=== PATIENT | male | born 1970 | race Caucasian/White ===

== ENCOUNTER 2017-02-20 22:39 | Emergency (ER) | payer BC ==
[~2017-02-20] VITALS: Ht 177.8 cm; Wt 115.4 kg
[~2017-02-20 22:39] MED LIST: AMLO2.5T PO; SYN125 PO
[2017-02-20 22:42] VITALS: BP 156/94; TEMP 36.5; Ht 177.8 cm; Wt 115.4 kg
[2017-02-20] MEDS ORDERED: LEVO25TA PO (22:50)
[2017-02-20] MEDS ORDERED: ATEN-173 PO (22:50)
[2017-02-20] MEDS ORDERED: PSEUDOEPHEDRINE HCL 30 MG TAB PO STA (22:52)
[2017-02-20] MEDS ORDERED: AMOXICILLIN 250 MG CAP PO STA (22:52)
[2017-02-20] MEDS ORDERED: AMOX500C3 PO (23:08)
[2017-02-20 23:14] VITALS: PULSE 86; O2SAT 97
--- NOTE | 2017-02-21 00:37 | EMERGENCY ROOM VISIT NOTE ---
History First contact with patient: 22:42 Chief Complaint: EAR PAIN Stated Complaint: LEFT EAR PAIN History of Present Illness The patient is a 46 year old male who presents to the Emergency Room with complaints of cough, congestion, runny nose and left ear fullness and discomfort for the past few days. Patient states the ear pain started tonight. Patient denies fever, chills, sore throat, neck stiffness, chest pain, dyspnea , abdominal pain. He is tolerating by mouth fluids and food. Review of Systems See HPI for pertinent positives & negatives. A total of 10 systems reviewed and were otherwise negative. Past Medical/Surgical History Hypothyroidism, hypertension Social History Smoking Status: Never Smoker Smokeless Tobacco Use: No Drug Use: none Occupation Status: employed Current/Historical Medications Scheduled Amoxicillin (Amoxil), 500 MG PO TID Atenolol (Tenormin), Unknown Dose PO DAILY Levothyroxine Sodium (Synthroid), Unknown Dose PO DAILY Allergies Coded Allergies: No Known Allergies (Unverified , 02/20/17) Physical Exam Vital Signs Date Time Temp Pulse Resp B/P Pulse Ox O2 Delivery O2 Flow Rate FiO2 02/20/17 23:14 86 18 97 02/20/17 22:42 36.5 62 16 156/94 96 Room Air Pain Rating (0-10): 3.0 Physical Exam VITALS: Vitals are noted on the nurse's note and reviewed by myself. Vital signs stable. GENERAL: Pleasant male, in no acute distress, nondiaphoretic, well-developed well-nourished. SKIN: The skin was without rashes, erythema, edema, or bruising. There is no tenting of the skin. Capillary reflex less than 2 seconds. HEAD: Normocephalic atraumatic. EARS: Left tympanic membrane erythematous with fluid present and ear canal is erythematous right External auditory canals clear, tympanic membranes pearly liu without erythema or effusion no mastoid tenderness bilaterally. EYES: Pupils equal round and reactive to light and accommodation. Conjunctivae without injection, sclerae without icterus. Extraocular movements intact. NOSE: Patent, turbinates without inflammation or discharge. No sinus tenderness. MOUTH: Mucous membranes moist. Pharynx without erythema or exudate. Uvula midline. Airway patent. Tongue does not deviate. NECK: Supple without nuchal rigidity. No lymphadenopathy. No thyromegaly. Cervical spine is nontender. No JVD. No meningeal signs HEART: Regular rate and rhythm without murmurs gallops or rubs. LUNGS: Clear to auscultation bilaterally without wheezes, rales or rhonchi. No dullness to percussion. No retractions or accessory muscle use. ABDOMEN: Positive bowel sounds x 4. Normal tympanic percussion. Soft, nontender, without masses or organomegaly. Phillips sign negative. No guarding or rebound tenderness. MUSCULOSKELETAL: No muscle atrophy, erythema, or edema noted. NEURO: Patient was alert and oriented to person place and time. Normal sensation to light and sharp touch. No focal neurological deficits. Medical Decision & Procedures Medications Administered Medications (Trade) Dose Ordered Sig/Kiki Route Start Time Stop Time Status Last Admin Dose Admin Amoxicillin (Amoxil Cap) 500 mg NOW STAT PO 02/20/17 22:52 02/20/17 22:54 DC 02/20/17 22:52 500 MG Pseudoephedrine HCl (Sudafed Tab) 60 mg NOW STAT PO 02/20/17 22:52 02/20/17 22:54 DC 02/20/17 22:52 60 MG ED Course Prior records/ancillary studies reviewed. Triage Nursing notes reviewed. The patient's history was concerning for a cold symptoms with ear pain. Differential diagnosis: Etiologies such as viral syndrome, tonsillitis, otitis, pneumonia, influenza, as well as others were entertained. ER treatment provided: Amoxicillin, Sudafed On reassessment the patient felt better. Diagnostics interpreted by me: Deferred This appears to be consistent with otitis with effusion. Patient was advised to take a decongestant. He was started on an medics possible early otitis media. He was strongly encouraged to be congestive next few days and to follow- up family care in a few days or here in the ER sooner for headache, neck stiffness, fevers, worsening signs or symptoms or as needed. Patient had no signs of meningitis or mastoiditis on exam. He was well-appearing.. By the evaluation outlined above emergent etiologies such as peritonsillar abscess, retropharyngeal abscess pneumonia, meningitis, urinary tract infection, sepsis, bacteremia, as well as others were deemed relatively unlikely. The pt informed about the findings as listed above. All questions were answered and pleased with the treatment. Return instructions were outlined and the patient was discharged in stable condition. Outpatient prescription management: Amoxicillin Referral: The patient was referred back to their primary care physician for follow-up in 2 to 3 days for a recheck of the current condition. Medical Decision As above Impression Primary Impression: Left otitis media with effusion Departure Information Dispostion Home / Self-Care Condition GOOD Prescriptions Amoxicillin (AMOXIL) 500 Mg Cap 500 MG PO TID, #30 CAP Prov: Belkis Kendall .ALICIA 02/20/17 Forms WORK / SCHOOL INSTRUCTIONS, HOME CARE DOCUMENTATION FORM, IMPORTANT VISIT INFORMATION Patient Instructions [facility], ED Otitis Media Serous Adult Additional Instructions Amoxicillin 500mg: Take one pill 3 times daily for 10 days for your infection. All antibiotics can cause diarrhea. If this occurs and you feel worse or it does not resolve in 1-2 days follow up with your doctor or return to the Emergency Department as this could be signs of serious underlying problems. Any medication can cause an allergic reaction, stop the pills immediately and return to the ER for rash, hives, breathing difficulties, or swelling. Acetaminophen(Tylenol) may be used for fever or pain. Use 1000mg every six hours as needed. Avoid using more than 3000mg in a 24 hour period. (AND/OR) Ibuprofen(Motrin, Advil) may be used for fever or pain. Use 600mg every six hours as needed. Take with food. Avoid using more than 2400mg in a 24 hour period. Do not use 2400mg per day for more than three consecutive days without physician direction. Prolonged inappropriate use can lead to stomach upset or ulcers. Afrin nasal spray: 2-3 sprays to each nostril twice daily as needed for congestion. Do not use for more than 3-4 days because it can lead to worsening rebound congestion. Pseudoephedrine(Sudaphed): 30-60mg every 6 hours as needed for nasal congestion. Do not take this with other stimulant products or supplements. Rest and drink plenty of fluids. Controlling your fever with Tylenol and Ibuprofen as above will make you feel better. Wash your hands after nose blowing, sneezing, or coughing. Most germs are spread through contact, therefore improper hygiene may result in your close contacts and loved ones becoming ill just like you. Continue current medications. Return to the ER for severe headache, neck stiffness, chest pain, difficulty breathing, fevers, vomiting, worsening of your condition, or as needed. Follow up with your primary physician this week for a recheck of your current condition.
== END 2017-02-20 23:15 | disposition home or self-care (01) ==
LOC: C.EDB 22:40 → C.EDC 23:15
DX: H66.92 Otitis media, unspecified, left ear (principal); I10 Essential (primary) hypertension; E03.9 Hypothyroidism, unspecified; Z79.899 Other long term (current) drug therapy

== ENCOUNTER 2017-06-11 15:39 | Observation (INO) | payer BC ==
[~2017-06-11] VITALS: Ht 177.8 cm; Wt 112.4 kg
[~2017-06-11 15:39] MED LIST changes: -AMLO2.5T PO; +ATEN-173 PO; +LEVO25TA PO; -SYN125 PO
[2017-06-11] MEDS ORDERED: NITROGLYCERIN OINT 2% 1GM PACKET EXT STA (16:04)
[2017-06-11] MEDS ORDERED: ASPIRIN 81 MG CHEW PO STA (16:04)
--- NOTE | 2017-06-11 16:16 | EMERGENCY ROOM VISIT NOTE ---
History Report prepared by Pati: Elvis Scanlon Under the Supervision of: Dr. Zacarias Hoover M.D. First contact with patient: 15:59 Chief Complaint: CHEST PAIN Stated Complaint: SOB, CHEST PAIN Nursing Triage Summary: pt to the ED with intermittant Chest pain SOB and nausea and diaphoresis on sunday nothing makes it better or worse History of Present Illness The patient is a 46 year old male who presents to the Emergency Room with complaints of intermittent chest pain starting about two weeks ago which worsened two days ago. He states that the worse the pain gets is a 2/10 in severity. He states that two days ago he was getting diaphoretic, he was light headed when he stood up. The patient additionally states that he has been nauseous, and he has had intermittent shortness of breath which is worsened with exertion. He states that nothing makes the chest pain any better or worse, and it only lasts 10-15 minutes at a time. The patient additionally states that he is feeling some chest tightness. He denies any new leg swelling, though he has been having issues with his feet with plantar fascitis. The patient states that he has a history of hypertension, and he takes blood pressure medications. Denies any history of heart or lung problems, though he states that his dad had a heart attack in his 50s. He additionally states that he has troubles with his thyroid, and he states that he has never had a stress test done. Source of History: patient Onset: two weeks ago Position: chest Symptom Intensity: 2/10 Timing: intermittent Associated Symptoms: + diaphoresis, + SOB, + nausea Review of Systems See HPI for pertinent positives & negatives. A total of 10 systems reviewed and were otherwise negative. Past Medical & Surgical Medical Problems: (1) Hypertension (2) Plantar fasciitis Family History FH: heart attack Social History Smoking Status: Never Smoker Drug Use: none Marital Status: Occupation Status: employed Current/Historical Medications Scheduled Atenolol (Tenormin), 50 MG PO DAILY Levothyroxine Sodium (Synthroid), 200 MCG PO DAILY Allergies Coded Allergies: No Known Allergies (Unverified , 06/11/17) Physical Exam Vital Signs Date Time Temp Pulse Resp B/P (MAP) Pulse Ox O2 Delivery O2 Flow Rate FiO2 06/11/17 17:01 73 18 160/104 93 Room Air 06/11/17 16:17 68 06/11/17 15:47 36.9 63 20 178/107 96 Physical Exam GENERAL: Patient is in no acute distress. HEENT: No acute trauma, normocephalic atraumatic, mucous membranes moist, no nasal congestion, no scleral icterus. NECK: No stridor, no adenopathy, no meningismus, trachea is midline. LUNGS: Clear to auscultation bilaterally, no wheeze, no rhonchi, breath sounds equal. HEART: Without murmurs gallops or rubs, regular rate and rhythm. ABDOMEN: Soft, nontender, bowel sounds positive, no hernias, no peritonitis. EXTREMITIES: No cyanosis or edema, full range of motion of all the joints without pain or difficulty, no signs for acute trauma. NEUROLOGIC: Oriented x 3, no acute motor or sensory deficits, no focal weakness. SKIN: No rash, no jaundice, no diaphoresis. Medical Decision & Procedures ER Provider Diagnostic Interpretation: Radiology results as stated below per my review and radiologist interpretation: CHEST ONE VIEW PORTABLE HISTORY: 46 years-old Male CHEST PAIN acute atypical chest pain. Initial exam. COMPARISON: None available TECHNIQUE: Portable upright AP view of the chest FINDINGS: Cardiac silhouette is upper limits of normal. No pneumothorax, pleural effusion or lobar airspace consolidation. Subsegmental left basilar opacity suggests atelectasis. Bones are grossly intact. IMPRESSION: Subsegmental opacity of the left lung base suggest atelectasis. Lungs are otherwise clear. The above report was generated using voice recognition software. It may contain grammatical, syntax or spelling errors. Electronically signed by: nAtonio Soto M.D. 06/11/2017 5:06 PM Dictated Date/Time: 06/11/2017 5:05 PM Laboratory Results 06/11/17 16:30 06/11/17 16:30 Test 06/11/17 16:30 Red Blood Count 4.87 M/uL (4.7-6.1) Mean Corpuscular Volume 88.9 fL (80-100) Mean Corpuscular Hemoglobin 30.6 pg (25-34) Mean Corpuscular Hemoglobin Concent 34.4 g/dl (32-36) RDW Standard Deviation 41.3 fL (36.4-46.3) RDW Coefficient of Variation 12.8 % (11.5-14.5) Mean Platelet Volume 9.7 fL (7.4-10.4) Prothrombin Time 10.5 SECONDS (9.0-12.0) Prothromb Time International Ratio 1.0 (0.9-1.1) Activated Partial Thromboplast Time 27.9 SECONDS (21.0-31.0) Partial Thromboplastin Ratio 1.1 Anion Gap 7.0 mmol/L (3-11) Est Creatinine Clear Calc Drug Dose 132.5 ml/min Estimated GFR () 118.8 Estimated GFR (Non- 102.5 BUN/Creatinine Ratio 8.9 (10-20) Calcium Level 8.9 mg/dl (8.5-10.1) Total Bilirubin 0.4 mg/dl (0.2-1) Aspartate Amino Transf (AST/SGOT) 27 U/L (15-37) Alanine Aminotransferase (ALT/SGPT) 40 U/L (12-78) Alkaline Phosphatase 72 U/L (45-117) Total Creatine Kinase 118 U/L (39-308) Creatine Kinase MB 0.7 ng/ml (0.5-3.6) Creatine Kinase MB Ratio 0.6 (0-3.0) Troponin I < 0.015 ng/ml (0-0.045) Total Protein 8.3 gm/dl (6.4-8.2) Albumin 4.1 gm/dl (3.4-5.0) Globulin 4.2 gm/dl (2.5-4.0) Albumin/Globulin Ratio 1.0 (0.9-2) Laboratory results reviewed by me. Medications Administered Medications (Trade) Dose Ordered Sig/Kiki Route Start Time Stop Time Status Last Admin Dose Admin Nitroglycerin (Nitroglycerin 2% Oint) 1 inch NOW STAT EXT 06/11/17 16:04 06/11/17 16:09 DC 06/11/17 17:00 1 INCH Aspirin (Aspirin Chew) 324 mg NOW STAT PO 06/11/17 16:04 06/11/17 16:09 DC 06/11/17 17:00 324 MG ECG Indication: chest pain Rate (beats per minute): 63 Rhythm: normal sinus Findings: T-wave inversion (Inferior and lateral), no ectopy ED Course 1559: The patient was evaluated in room B10. A complete history and physical exam was performed. 1604: Aspirin 324mg PO, Nitroglycerin 1 inch EXT 1715: I reevaluated the patient, and I updated him on the treatment plan. 172: Discussed the patient's case with Tariq Plummer. The patient will be evaluated for further management. Medical Decision Differential Diagnoses include: Angina or PA, musculoskeletal pain, uncontrolled hypertension, anemia, aortic dissection, and PE There is no leukocytosis or concerning anemia. No significant electrolyte abnormality, kidney failure or hepatitis. There is no coagulopathy. EKG shows a sinus rhythm with some T-wave changes in the inferior and lateral leads. These changes seem worse compared to a previous EKG. Cardiac enzyme testing times one is not consistent with acute cardiac injury. Chest x-ray shows some mild cardiomegaly, no mediastinal widening, pneumonia or pneumothorax. The patient was given oral aspirin and Nitropaste. He remains somewhat hypertensive, he is resting comfortably. Given his cardiac risk factors, his EKG findings, his description of symptoms, further cardiac workup is warranted. I spoke to the patient and case management. The on-call hospitalist was consulted. Medication Reconcilliation Current Medication List: was personally reviewed by me Blood Pressure Screening Patient's blood pressure: Elevated blood pressure Evaluated by the hospitalist Consults Time Called: 171 Consulting Physician: Tariq Plummer Returned Call: [phone] Discussed the patient's case with Tariq Plummer. The patient will be evaluated for further management. Impression Primary Impression: Precordial chest pain Additional Impression: HTN (hypertension) Scribe Attestation The scribe's documentation has been prepared under my direction and personally reviewed by me in its entirety. I confirm that the note above accurately reflects all work, treatment, procedures, and medical decision making performed by me. Departure Information Dispostion Being Evaluated By Hospitalist Referrals Rosendo Perez M.D. (PCP) Patient Instructions My [facility] [address] [facility] Problem Qualifiers
[2017-06-11] MEDS ORDERED: ATEN50TA8 PO (16:34)
[2017-06-11] MEDS ORDERED: LEVO200T PO (16:34)
[2017-06-11 16:54] LABS: HEMATOCRIT 43.3 % (42-52); MEAN CELL VOLUME 88.9 fL (80-100); MEAN CORPUSCULAR HEMOGLOBIN 30.6 pg (25-34); MEAN CORPUSCULAR HGB CONC 34.4 g/dl (32-36); MEAN PLATELET VOLUME 9.7 fL (7.4-10.4); PLATELET COUNT 316 K/uL (130-400); RED BLOOD COUNT 4.87 M/uL (4.7-6.1); WHITE BLOOD COUNT 7.44 K/uL (4.8-10.8)
[2017-06-11 16:56] LABS: PARTIAL THROMBOPLASTIN RATIO 1.1; PROTHROMBIN TIME (PATIENT) 10.5 SECONDS (9.0-12.0)
[2017-06-11 17:03] LABS: ALT/SGPT 40 U/L (12-78); BLOOD UREA NITROGEN 8 mg/dl (7-18); BUN/CREATININE RATIO 8.9 (10-20); CALCIUM 8.9 mg/dl (8.5-10.1); CARBON DIOXIDE 25 mmol/L (21-32); CHLORIDE 106 mmol/L (98-107); CREATININE 0.89 mg/dl (0.60-1.40); GLUCOSE 90 mg/dl (70-99); POTASSIUM 3.9 mmol/L (3.5-5.1); SODIUM 138 mmol/L (136-145)
--- NOTE | 2017-06-11 17:07 | DIAGNOSTIC IMAGING REPORT ---
CHEST ONE VIEW PORTABLE HISTORY: 46 years-old Male CHEST PAIN acute atypical chest pain. Initial exam. COMPARISON: None available TECHNIQUE: Portable upright AP view of the chest FINDINGS: Cardiac silhouette is upper limits of normal. No pneumothorax, pleural effusion or lobar airspace consolidation. Subsegmental left basilar opacity suggests atelectasis. Bones are grossly intact. IMPRESSION: Subsegmental opacity of the left lung base suggest atelectasis. Lungs are otherwise clear. The above report was generated using voice recognition software. It may contain grammatical, syntax or spelling errors. Electronically signed by: Antonio Soto M.D. 06/11/2017 5:06 PM Dictated Date/Time: 06/11/2017 5:05 PM
[2017-06-11 17:08] LABS: ALKALINE PHOSPHATASE 72 U/L (45-117); AST/SGOT 27 U/L (15-37); CKMB/CK RATIO 0.6 (0-3.0)
[2017-06-11] MEDS ORDERED: ALUMINUM/MAGNESIUM/SIMETH (MAALOX MAX) 30 ML UDC PO PRN (18:30)
[2017-06-11] MEDS ORDERED: POLYETHYLENE (MIRALAX) 17 GM PACK PO PRN (18:30)
[2017-06-11] MEDS ORDERED: ACETAMINOPHEN 325 MG TAB PO PRN (18:30)
[2017-06-11] MEDS ORDERED: MAGNESIUM HYDROXIDE SUSP 30 ML UDC PO PRN (18:30)
[2017-06-11] MEDS ORDERED: ZOLPIDEM TARTRATE 5 MG TAB PO PRN (18:30)
[2017-06-11] MEDS ORDERED: NITROGLYCERIN 0.4 MG SL PER TAB CHARGE SL PRN (18:30)
--- NOTE | 2017-06-11 18:36 | History and Physical ---
History & Physical Date & Time of Service: Jun 11, 2017 at 18:26 Chief Complaint: Sob, Chest Pain Primary Care Physician: Rosendo Perez M.D. History of Present Illness Source: patient, family 46 years old white male with past medical history of hypertension and hypothyroidism presented to the ED with intermittent chest pain. Patient stated that for the past few days he has been having intermittent chest tightness substernal and left side of the chest, the vein itself was about 2 out 10 comes with minimal exertion. Associated with shortness of breath and diaphoresis. Also said when he moves from sitting to standing position he gets lightheaded. Patient comes in minimal exertion and there is no relieving factors. 2 days ago he had his worst episode where he felt a lot of diaphoresis palpitation and dizziness. Today he had a recurrent episode but was not as bad as the one that happened 2 days ago. He traveled recently to [place] by car about 2 weeks ago. Denies any leg swelling or tenderness no shortness of breath except the one described above associated with chest pain He does not smoke does not drink lives with his was smokes outside the house. Strong family history of cardiac disease and diabetes in his dad Family History FH: heart attack Social History Smoking Status: Never Smoker Drug Use: none Marital Status: Occupational Status: employed Multi-Drug Resistant Organisms History of MDRO: No Allergies Coded Allergies: No Known Allergies (Unverified , 06/11/17) Home Medications Scheduled Atenolol (Tenormin), 50 MG PO DAILY Levothyroxine Sodium (Synthroid), 200 MCG PO DAILY Review of Systems Constitutional: No fever, No chills, No sweats, No weight loss, No weakness, No fatigue, No problem reported Eyes: No worsening of vision, No eye pain, No redness, No discharge, No diplopia, No problem reported ENT: No hearing loss, No unusual epistaxis, No nasal symptoms, No sore throat, No tinnitus, No dental problems, No trouble swallowing, No problem reported Respiratory: + shortness of breath, No cough, No sputum, No wheezing, No dyspnea on exertion, No dyspnea at rest, No hemoptysis, No problem reported Cardiovascular: + chest pain, No orthopnea, No PND, No edema, No claudication, No palpitations, No problem reported Abdomen: + nausea, No pain, No vomiting, No diarrhea, No constipation, No GI bleeding, No problem reported Musculoskeletal: No joint pain, No muscle pain, No swelling, No calf pain, No problem reported Genitourinary - Male: No hematuria, No dysuria, No urinary frequency, No urinary urgency, No urinary hesitancy, No urinary retention, No urinary incontinence, No penile discharge, No lesions, No impotence, No problem reported Neurologic: No memory loss, No paralysis, No weakness, No numbness/tingling, No vertigo, No balance problems, No problem reported Psychiatric: No depression symptoms, No anhedonism, No anxiety, No insomnia, No substance abuse, No problem reported Endocrine: No fatigue, No excessive thirst, No excessive urination, No problem reported Hematologic / Lymphatic: No abnormal bleeding/bruising, No clotting problems, No swollen lymph nodes, No night sweats, No problem reported Integumentary: No rash, No itch, No new/changing skin lesions, No color change , No bleeding, No problem reported Allergic / Immunologic: No environmental allergies, No seasonal allergies, No pet sensitivities, No food allergies, No hives, No frequent infections, No poor healing, No prolonged convalescence, No problem reported Physical Exam Vital Signs Date Time Temp Pulse Resp B/P (MAP) Pulse Ox O2 Delivery O2 Flow Rate FiO2 06/11/17 18:00 72 18 138/89 95 Room Air 06/11/17 17:01 73 18 160/104 93 Room Air 06/11/17 16:17 68 06/11/17 15:47 36.9 63 20 178/107 96 General Appearance: WD/WN, no apparent distress Head: normocephalic, atraumatic Eyes: normal inspection, EOMI ENT: normal ENT inspection, hearing grossly normal Neck: supple Respiratory/Chest: chest non-tender, lungs clear, normal breath sounds, no respiratory distress, no accessory muscle use Cardiovascular: regular rate, rhythm, no edema, no gallop, no JVD, no murmur, normal peripheral pulses Abdomen/GI: normal bowel sounds, non tender, soft, no organomegaly, no pulsatile mass Back: normal inspection, no CVA tenderness, no muscle spasm, normal range of motion Extremities/Musculoskelatal: normal inspection, no calf tenderness, normal capillary refill, no pedal edema, normal range of motion Neurologic/Psych: network engineer II-XII nml as tested, no motor/sensory deficits, alert, normal mood/affect, normal reflexes, oriented x 3 Skin: normal color, warm/dry, no rash Diagnostics Laboratory Results Results Past 24 Hours Test 06/11/17 16:30 06/11/17 18:17 Range/Units White Blood Count 7.44 4.8-10.8 K/uL Red Blood Count 4.87 4.7-6.1 M/uL Hemoglobin 14.9 14.0-18.0 g/dL Hematocrit 43.3 42-52 % Mean Corpuscular Volume 88.9 80-100 fL Mean Corpuscular Hemoglobin 30.6 25-34 pg Mean Corpuscular Hemoglobin Concent 34.4 32-36 g/dl RDW Standard Deviation 41.3 36.4-46.3 fL RDW Coefficient of Variation 12.8 11.5-14.5 % Platelet Count 316 130-400 K/uL Mean Platelet Volume 9.7 7.4-10.4 fL Prothrombin Time 10.5 9.0-12.0 SECONDS Prothromb Time International Ratio 1.0 0.9-1.1 Activated Partial Thromboplast Time 27.9 21.0-31.0 SECONDS Partial Thromboplastin Ratio 1.1 Sodium Level 138 136-145 mmol/L Potassium Level 3.9 3.5-5.1 mmol/L Chloride Level 106 98-107 mmol/L Carbon Dioxide Level 25 21-32 mmol/L Anion Gap 7.0 3-11 mmol/L Blood Urea Nitrogen 8 7-18 mg/dl Creatinine 0.89 0.60-1.40 mg/dl Est Creatinine Clear Calc Drug Dose 132.5 ml/min Estimated GFR () 118.8 Estimated GFR (Non- 102.5 BUN/Creatinine Ratio 8.9 10-20 Random Glucose 90 70-99 mg/dl Calcium Level 8.9 8.5-10.1 mg/dl Total Bilirubin 0.4 0.2-1 mg/dl Aspartate Amino Transf (AST/SGOT) 27 15-37 U/L Alanine Aminotransferase (ALT/SGPT) 40 12-78 U/L Alkaline Phosphatase 72 45-117 U/L Total Creatine Kinase 118 39-308 U/L Creatine Kinase MB 0.7 0.5-3.6 ng/ml Creatine Kinase MB Ratio 0.6 0-3.0 Troponin I < 0.015 0-0.045 ng/ml Total Protein 8.3 6.4-8.2 gm/dl Albumin 4.1 3.4-5.0 gm/dl Globulin 4.2 2.5-4.0 gm/dl Albumin/Globulin Ratio 1.0 0.9-2 Impression Assessment and Plan Chest pain with abnormal EKG HTN Hypothyroidism Obesity Plan: Admit to telemetry / observation status serial cardiac enz check Lipids and Hgb A1C cardiology consult continue atenolol continue synthroid and check TSH level obtain D dimer due to the recent travel to [facility] by car 2 weeks ago SL NTG prn NTG patch empiric ASA and statin lovenox for DVT prophylaxis Resuscitation Status FULL RESUSCITATION VTE Prophylaxis VTE Risk Assessment Done? Y/N: Yes Risk Level: Moderate Given or contraindicated: Enoxaparin (Lovenox)SQ
[2017-06-11] MEDS ORDERED: IV FLUIDS COMPLETED PRN (19:00)
[2017-06-11 19:15] VITALS: BP 147/93; PULSE 61; TEMP 36.6; O2SAT 94; Ht 177.8 cm; Wt 112.4 kg
[2017-06-11] MEDS: SODIUM CHLORIDE 0.9% 1000ML 1,000 ML IV SCH (19:29)
[2017-06-11] MEDS ORDERED: ATORVASTATIN 40 MG TAB PO SCH (20:00)
[2017-06-11] MEDS ORDERED: ENOXAPARIN 40 MG/0.4 ML SYR SC SCH (20:00)
[2017-06-11] MEDS: NITROGLYCERIN OINT 2% 1GM PACKET EXT SCH (20:40)
[2017-06-11 23:38] VITALS: BP 127/73; PULSE 62; TEMP 36.9; O2SAT 95
[2017-06-12] MEDS: NITROGLYCERIN OINT 2% 1GM PACKET EXT SCH ×3 (03:00→14:00)
[2017-06-12 03:55] VITALS: BP 145/74; PULSE 66; TEMP 36.8; O2SAT 95
[2017-06-12 05:56] LABS: BASO % 0.4 %; BASO ABS # 0.04 K/uL (0-0.2); COMPLETE YES; EOS % 2.6 %; IG% 0.5 %; LYMPH % 27.6 %; LYMPH ABS # 3.03 K/uL (1.2-3.4); MEAN CELL VOLUME 90.7 fL (80-100); MEAN CORPUSCULAR HEMOGLOBIN 30.6 pg (25-34); MEAN CORPUSCULAR HGB CONC 33.8 g/dl (32-36); MEAN PLATELET VOLUME 9.7 fL (7.4-10.4); MONO % 6.7 %; NEUT % 62.2 %; PLATELET COUNT 270 K/uL (130-400); RED BLOOD COUNT 4.41 M/uL (4.7-6.1); WHITE BLOOD COUNT 10.98 K/uL (4.8-10.8)
[2017-06-12] MEDS ORDERED: LEVOTHYROXINE 200 MCG TAB PO SCH ×2 (06:00→09:00)
[2017-06-12 06:31] LABS: ESTIMATED AVERAGE GLUCOSE 114 mg/dl; HA1C FLAG Normal (Normal)
[2017-06-12 06:32] LABS: ALT/SGPT 34 U/L (12-78); AST/SGOT 20 U/L (15-37); BLOOD UREA NITROGEN 12 mg/dl (7-18); BUN/CREATININE RATIO 12.7 (10-20); CALCIUM 8.3 mg/dl (8.5-10.1); CARBON DIOXIDE 28 mmol/L (21-32); CHLORIDE 108 mmol/L (98-107); CREATININE 0.91 mg/dl (0.60-1.40); GLUCOSE 88 mg/dl (70-99); MAGNESIUM 2.2 mg/dl (1.8-2.4); POTASSIUM 3.7 mmol/L (3.5-5.1); SODIUM 141 mmol/L (136-145)
[2017-06-12 06:38] LABS: ALKALINE PHOSPHATASE 59 U/L (45-117); CHOLESTEROL 181 mg/dl (0-200); CHOLESTEROL/HDL RATIO 5.5; HDL CHOLESTEROL 33 mg/dl; LDL CHOLESTEROL CALCULATED 80 mg/dl; PHOSPHORUS 3.4 mg/dl (2.5-4.9); TRIGLYCERIDES 339 mg/dl (0-150); VERY LOW DENSITY LIPOPROT CALC 68 mg/dl
[2017-06-12 07:04] VITALS: BP 134/71; PULSE 59; TEMP 36.6; O2SAT 98
[2017-06-12] MEDS ORDERED: ASPIRIN 325 MG ECTAB PO SCH (09:00)
[2017-06-12 09:02] VITALS: PULSE 78
[2017-06-12] MEDS: SODIUM CHLORIDE 0.9% 1000ML 1,000 ML IV SCH (09:03)
--- NOTE | 2017-06-12 10:34 | Cardiology Consultation ---
Cardiology Consultation Date of Consultation: Jun 12, 2017. Attending Physician: Dr. Braxton Pt evaluation today including: conversation w/ patient, physical exam, chart review, lab review, review of studies, conversation w/ attending History of Present Illness This is a PGY1 resident consult note while on the cardiology service. Please see attending's consult for further discussion and official plan/ recommendations. 46yo male presented to ED on [id number] with intermittent chest discomfort and SOB. Pt states he's had the feeling of chest discomfort, described as "slight gurgle and anxiety", apparently spontaneously over the past two weeks. When asked to clarify, he says it's a slight pressure like a finger pushing down on the chest. Says it can occur on left or right upper chest, does not radiate from site of origin, and self-resolves almost always within five minutes (often within even a minute). Sometimes the chest sensation is accompanied by SOB which lasts the same period of time. He wonders if the SOB is from some anxiety on trying to figure out what the cause of the chest discomfort is. Sx onset can occur with activity or at rest, with no known provocating or alleviating factors. He denies any overall worsening over these two weeks. Most recent significant episode was on Sat 02Sep when he noted some chest sx as above while doing some mild exertion, with concurrent SOB, diaphoresis, and mild nausea (no emesis). He says that self-resolved within five minutes. He presented to the ED yesterday at the insistence of family when reporting another chest + SOB episode that day at their home. He denies any recent known fevers or illness, cough or interval SOB, V/D, abd or back or extremity pains, melena or hematochezia, dizziness or headaches or syncope, leg swelling (but says his feet hurt sometimes due to plantar fasciitis), immobilization (outside of a car ride two weeks ago), or other acute c/o. He does say he had a similar feeling about 15 years ago, seen in an ED, EKG performed (and pt thinks somehow his EKG then and now are the same), but no further workup (no hx echo or stress test), and denies interval sx during this multi-year time. Past Medical/Surgical History PMH: HTN, hypothyroidism, anxiety (sees psychologist for past 18 months), (B) plantar fasciitis, ? osteochrondroma; ruptured spleen + rib fx + kidney contusion all s/p ice hockey injury age 16. PSH: None Home meds: 1) Atenolol 50 mg PO q day (remembers to take ~4/7 days per week) 2) Synthroid 200 mcg PO q day (remembers to take ~4/7 days per week) All: NKDA Family History FH: heart attack FH: Father s/p TX around late 40's or early 50's and is s/p CABG x4 vessel, presently alive. Mother alive, no known cardiac issues. Social History Smoking Status: Never Smoker History of Alcohol Use: No SH: Never used tobacco. smokes outside the home. Drinks alcohol once per year, no prior significant hx of same. Denies illicit drug use. Self-employed, books entertainment events. Review of Systems Constitutional: No fever, No chills, No weakness Respiratory: + shortness of breath (only during episodes), No cough, No wheezing, No dyspnea at rest Cardiac: + chest pain (only during episodes), No edema, No palpitations Abdomen: No pain, No nausea, No vomiting, No diarrhea Male : No dysuria, No hematuria Neurologic: No weakness, No numbness/tingling, No vertigo Heme: No abnormal bleeding/bruising Endo: No fatigue Skin: No rash Allergies Coded Allergies: No Known Allergies (Unverified , 06/11/17) Medications Current Inpatient Medications Medications (Trade) Dose Ordered Sig/Kiki Route Start Time Stop Time Status Last Admin Dose Admin Enoxaparin Sodium (Lovenox Inj) 40 mg Q24H SC 06/11/17 20:00 07/11/17 19:59 06/11/17 20:39 40 MG Sodium Chloride 1,000 ml @ 75 mls/hr [id number] IV 06/11/17 18:17 07/11/17 18:16 06/12/17 09:03 75 MLS/HR Acetaminophen (Tylenol Tab) 650 mg Q4H PRN PO 06/11/17 18:30 07/11/17 18:29 06/12/17 00:59 650 MG Al Hydrox/Mg Hydrox/Simethicone (Maalox Max Susp) 15 ml Q4H PRN PO 06/11/17 18:30 07/11/17 18:29 Magnesium Hydroxide (Milk Of Magnesia Susp) 30 ml Q12H PRN PO 06/11/17 18:30 07/11/17 18:29 Zolpidem Tartrate (Ambien Tab) 5 mg HSZ PRN PO 06/11/17 18:30 07/11/17 18:29 Nitroglycerin (Nitrostat Tab) 0.4 mg UD PRN SL 06/11/17 18:30 07/11/17 18:29 Nitroglycerin (Nitroglycerin 2% Oint) 1 inch Q6H EXT 06/11/17 20:00 07/11/17 19:59 06/11/17 20:40 1 INCH Aspirin (Ecotrin Tab) 325 mg QAM PO 06/12/17 09:00 07/12/17 08:59 06/12/17 09:03 325 MG Polyethylene (Miralax Powder Packet) 17 gm DAILY PRN PO 06/11/17 18:30 07/11/17 18:29 Atorvastatin Calcium (Lipitor Tab) 40 mg HS PO 06/11/17 20:00 07/11/17 19:59 06/11/17 20:40 40 MG Atenolol (Tenormin Tab) 50 mg DAILY PO 06/12/17 09:00 07/12/17 08:59 06/12/17 09:04 50 MG Miscellaneous (Iv Fluids Completed) 1 ea PRN PRN N/A 06/11/17 19:00 06/11/18 18:59 Levothyroxine Sodium (Synthroid Tab) 200 mcg DAILYBB PO 06/12/17 06:00 07/12/17 05:59 06/12/17 05:28 200 MCG Physical Exam Vital Signs Past 12 Hours Date Time Temp Pulse Resp B/P (MAP) Pulse Ox O2 Delivery O2 Flow Rate FiO2 06/12/17 09:02 78 06/12/17 07:04 36.6 59 18 134/71 (92) 98 Room Air 06/12/17 04:00 Room Air 06/12/17 03:55 36.8 66 20 145/74 (97) 95 Room Air 06/11/17 23:59 Room Air 06/11/17 23:38 36.9 62 18 127/73 (91) 95 Room Air Head: normocephalic, atraumatic Neck: supple, trachea midline, no masses (no palpable thyroid masses appreciated) Lungs: Auscultation: breath sounds normal, no wheezing, no rales/crackles, no rhonchi Cardiovascular: Heart Auscultation: RRR, normal S1, normal S2, no murmurs Peripheral Pulses: Bruits: none appreciated Carotid Pulse: normal on the left, normal on the right Radial Pulse: normal on the left, normal on the right Dorsalis Pedis Pulse: normal on the left ((PT tested)), normal on the right ((PT tested)) Musculoskeletal: normal (soft, non-tender throughout) Extremities: no edema Data Laboratory Results: Last 24 Hours Test 06/11/17 16:30 06/12/17 00:17 06/12/17 00:29 06/12/17 05:26 White Blood Count 7.44 K/uL 10.98 K/uL Red Blood Count 4.87 M/uL 4.41 M/uL Hemoglobin 14.9 g/dL 13.5 g/dL Hematocrit 43.3 % 40.0 % Mean Corpuscular Volume 88.9 fL 90.7 fL Mean Corpuscular Hemoglobin 30.6 pg 30.6 pg Mean Corpuscular Hemoglobin Concent 34.4 g/dl 33.8 g/dl RDW Standard Deviation 41.3 fL 43.0 fL RDW Coefficient of Variation 12.8 % 12.9 % Platelet Count 316 K/uL 270 K/uL Mean Platelet Volume 9.7 fL 9.7 fL Prothrombin Time 10.5 SECONDS Prothromb Time International Ratio 1.0 Activated Partial Thromboplast Time 27.9 SECONDS Partial Thromboplastin Ratio 1.1 D-Dimer < 190 ug/L FEU Sodium Level 138 mmol/L 141 mmol/L Potassium Level 3.9 mmol/L 3.7 mmol/L Chloride Level 106 mmol/L 108 mmol/L Carbon Dioxide Level 25 mmol/L 28 mmol/L Anion Gap 7.0 mmol/L 5.0 mmol/L Blood Urea Nitrogen 8 mg/dl 12 mg/dl Creatinine 0.89 mg/dl 0.91 mg/dl Est Creatinine Clear Calc Drug Dose 132.5 ml/min 127.3 ml/min Estimated GFR () 118.8 116.7 Estimated GFR (Non- 102.5 100.7 BUN/Creatinine Ratio 8.9 12.7 Random Glucose 90 mg/dl 88 mg/dl Estimated Average Glucose 114 mg/dl Hemoglobin A1c 5.6 % Calcium Level 8.9 mg/dl 8.3 mg/dl Total Bilirubin 0.4 mg/dl 0.7 mg/dl Aspartate Amino Transf (AST/SGOT) 27 U/L 20 U/L Alanine Aminotransferase (ALT/SGPT) 40 U/L 34 U/L Alkaline Phosphatase 72 U/L 59 U/L Total Creatine Kinase 118 U/L Creatine Kinase MB 0.7 ng/ml 0.6 ng/ml 0.7 ng/ml Creatine Kinase MB Ratio 0.6 Troponin I < 0.015 ng/ml < 0.015 ng/ml < 0.015 ng/ml Total Protein 8.3 gm/dl 6.9 gm/dl Albumin 4.1 gm/dl 3.4 gm/dl Globulin 4.2 gm/dl 3.5 gm/dl Albumin/Globulin Ratio 1.0 1.0 Thyroid Stimulating Hormone (TSH) 15.500 uIu/ml Neutrophils (%) (Auto) 62.2 % Lymphocytes (%) (Auto) 27.6 % Monocytes (%) (Auto) 6.7 % Eosinophils (%) (Auto) 2.6 % Basophils (%) (Auto) 0.4 % Neutrophils # (Auto) 6.83 K/uL Lymphocytes # (Auto) 3.03 K/uL Monocytes # (Auto) 0.74 K/uL Eosinophils # (Auto) 0.29 K/uL Basophils # (Auto) 0.04 K/uL Immature Granulocyte % (Auto) 0.5 % Immature Granulocyte # (Auto) 0.05 K/uL Phosphorus Level 3.4 mg/dl Magnesium Level 2.2 mg/dl Triglycerides Level 339 mg/dl Cholesterol Level 181 mg/dl HDL Cholesterol 33 mg/dl LDL Cholesterol, Calculated 80 mg/dl VLDL Cholesterol, Calculated 68 mg/dl Cholesterol/HDL Ratio 5.5 Free Thyroxine 0.78 ng/dl EKG ED 04Sep: NSR 61; T wave inversion II, III, aVF, V3-6 Imaging ED CXR 04Sep: Subsegmental opacity of the left lung base suggest atelectasis. Lungs are otherwise clear. Assessment & Plan 46yo male with two weeks sporatic CP, no known provocation, sometimes exertional but others at rest, non-radiating, with occasional concurrent SOB and ongoing anxiety about the same, with FH of cardiac disease. DDx: ACS, angina, chest wall pain, anxiety, muscle strain vs spasm, PE vs PTX vs PNA vs aortic vs esophageal disease - Initial workup notes no evidence of acute ischemia on ED EKG but has inverted T waves. TnI x 3 negative. Question if gets brief episodes while inpt. ---- Cardiac echo performed this morning, official read pending. ---- Pt agrees to exercise stress test for further CP characterization, likely this afternoon, though pt did receive his atenolol this morning. - Afebrile, no reports of recent illness or URI sx or cough, & rather normal CXR , so do not suspect acute infectious issue (e.g. PNA) - Beyond car ride, no recent immobilization, no reports of coagulopathy, and normal d-dimer reassuring against PE. - No obvious chest wall trauma and is not directly reproducible on palpation, so chest wall issue not definitive source. - No abd pain, classic burning substernal pain, or relation to food to suggest esophageal or GERD issue. - Pt does have some long-term baseline anxiety, but at this point is more a dx of exclusion. - BP less hypertensive today. Discussed with pt need to take his meds regularly for best effect. Discussed overall plan with attending, Dr. Braxton, at pt's bedside this morning. Please see his official consult for further discussion and official cardiology recommendations/plan. - J, PGY1 Family medicine (cardiology service) ADDENDUM BY CARDIOLOGY ATTENDING: Please see my note. Resident Tracking Resident Involvement: Resident Care Provided Care Provided: Adult Hospital Medicine (cardiology consult)
--- NOTE | 2017-06-12 11:48 | CARDIOLOGY CONSULTATION ---
DATE OF CONSULTATION: 06/12/2017 DATE OF CONSULTATION: 06/12/2017 TIME: 10:48 a.m. CONSULTING PHYSICIAN: Dr. Karrie Mann. REASON FOR CONSULTATION: Chest pain. HISTORY OF PRESENT ILLNESS: Mr. Koroma is a pleasant 46-year-old gentleman with a history significant for abnormal ECG and hypertension. He presented to the [facility] Department on 06/11/2017 with chest pain. He has had intermittent chest pain over the past 2 weeks. He describes it as a gurgle sensation/anxiety feeling, and sometimes a chest pressure. It can occur on the right side of his chest, substernal, or left side of his chest. The pain occurs at different places in his chest at different times. It has occurred during exertion but is not exertional and rather occurs at any time for no reason. There is no specific trigger and has resolved spontaneously within 1-5 minutes. It occasionally is associated with shortness of breath and he feels as though it makes him anxious. He has had anxiety issues in the past and follows with a psychologist. On one occasion it also was accompanied by diaphoresis and mild nausea. There is no radiation of the pain, however. Overnight he had another episode of chest discomfort and states that he had nitroglycerin paste in place at that time and therefore has not noted any improvement on nitroglycerin. He states that he had similar symptoms approximately 15 years ago and had an ECG. In reviewing the records on 10/14/2003 he had an ECG which demonstrated inferolateral T-wave abnormality, similar to the ECG upon presentation which demonstrated more pronounced T-wave inversion in the inferolateral leads. He is currently chest pain free, but states that he has had a couple episodes since admission. He denies melena, hematochezia, hematuria, or other bleeding. He denies edema, palpitations, syncope, near syncope, fevers or chills. He does not exercise. He did have a headache following nitroglycerin administration of the nitroglycerin paste. REVIEW OF SYSTEMS: As above and review of systems otherwise negative. PAST MEDICAL HISTORY: 1. Hypertension. 2. Hypothyroidism. 3. Anxiety. 4. Abnormal ECG. HOME MEDICATIONS: Include: 1. Atenolol 50 mg daily. 2. Synthroid 200 mcg daily, but he forgets to take his medication regularly and estimates that he takes it a few days per week. SOCIAL HISTORY: Denies smoking. Rare alcohol. 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 He is and lives with his . He has a stepson. No biologic children. FAMILY HISTORY: Father had an CA in his late 40s or early 50s and had CABG done. PHYSICAL EXAMINATION: VITAL SIGNS: Temperature 36.6 degrees, heart rate 78 beats per minute, respiration rate 18, blood pressure 134/71 mmHg. Blood pressure on admission was 178/107 mmHg, oxygen saturation 98% on room air. Weight 112.4 kg. GENERAL: No acute distress. He is alert and oriented. HEAD, EYES, EARS, NOSE, AND THROAT: Anicteric sclerae. NECK: No appreciable JVD. No bruits. Normal carotid upstrokes bilaterally. CARDIAC EXAMINATION: PMI was nondisplaced. There was no ventricular heave. Regular, normal S1, S2. No audible murmurs, rubs or gallops. LUNGS: Clear to auscultation bilaterally without wheezes, rales or rhonchi. ABDOMEN: Soft, nontender, nondistended, normoactive bowel sounds, no bruits noted. EXTREMITIES: No cyanosis or edema. 2+ radial pulses bilaterally. 2+ dorsalis pedis pulses bilaterally. No palpable cords. PSYCHIATRIC: Affect appears appropriate. CHEST: Nontender to palpation. ECG upon presentation was personally reviewed as noted above. Repeat ECG was ordered this morning and demonstrated sinus rhythm with inverted T-waves in inferolateral leads, no significant change from admission ECG. Compared to ECG on 10/14/2003, the T-wave inversions are now more pronounced but ECGs were similar. Telemetry personally reviewed. No arrhythmia. LABORATORY DATA: White blood cell count 10.98, hemoglobin 13.5. Platelets 270. Sodium 141, potassium 3.7, BUN 12, creatinine 0.91. TSH 15.5, triglycerides 339, total cholesterol 181, LDL 80, HDL 33, AST 20, ALT 34, troponin undetectable x3. INR is 1. D-dimer undetectable. Chest x-ray image personally reviewed. Radiology has interpreted subsegmental opacity left lung base suggests atelectasis. On personal review, no obvious infiltrate or CHF. Echocardiogram images from this morning personally reviewed. On preliminary review LV systolic function appears normal without wall motion abnormalities. No significant valvular abnormalities. Full report to follow following formal review. ASSESSMENT AND PLAN: 1. Chest pain: Chest pain is atypical as described above with chest pain occurring at different places in his chest and not associated with exertion. He had similar symptoms 15 years ago. An ECG is similar; however, with more pronounced T-wave inversions. Recommend a stress echo to evaluate for ischemic changes. If stress echo is unremarkable, recommend noncardiac workup. Given atypical symptoms at this time with no other objective findings and similar ECG from 2004, recommend noninvasive evaluation rather than invasive measures such as coronary angiography. 2. Hypertension: Blood pressure intermittently elevated during hospitalization. Continue current outpatient medications. He did receive his atenolol this morning which may affect the overall heart rate response during exercise stress testing. 3. Dyslipidemia: Triglycerides are elevated. Recommend weight loss, diet and exercise regimen. Consider Mediterranean diet. Regular cardiac exercise with a goal 30-40 minutes per day, 5 days per week, start slowly and build up as tolerated. 4. Disposition: If stress echo is unremarkable, no further cardiac evaluation recommended at this time. If stress echo is abnormal, further recommendations to follow.
[2017-06-12 11:56] VITALS: BP 152/85; PULSE 77; TEMP 36.9; O2SAT 95
--- NOTE | 2017-06-12 14:00 | EXERCISE STRESS ECHO ---
*NOTICE TO RECEIVING [employer] This information is strictly Confidential and protected under [place] law. [place] law prohibits you from making any further disclosure of this information unless further disclosure is expressly permitted by the written consent of the person to whom it pertains or is authorized by law. A general authorization for the release of medical or other information is not sufficient for this purpose. Hospital accepts no responsibility if the information is made available to any other person, INCLUDING THE PATIENT. Interpretation Summary * Name: CECILIO OCHOA Study Date: 06/12/2017 08:27 AM BP: 134/71 mmHg * Patient Location: 233-1 HR: 78 * : 1970 (M/yyyy) Gender: Male Height: 70 in * Age: 46 yrs Ethnicity: CA Weight: 247 lb * Ordering Physician: James Braxton MD * Performed By: Margaret Jamison [facility] * * Reason For Study: Chest pain * BSA: 2.3 m2 * -- Conclusions -- * Stress Echo: * 1. Negative stress echo for ischemia at 86 % MPHR. * 2. Negative exercise ECG for ischemia at 86 % MPHR. * 3. Hypertensive blood pressure response to exercise. * 4. No arrhythmia. * 5. Study terminated due to hypertension. No chest pain reported. * 6. Good exercise tolerance. * Echo: * 1. Normal left ventricular size with normal systolic function. EF 55-60%. No regional wall motion abnormalities. No left ventricular hypertrophy. Type 1 diastolic dysfunction. * 2. No significant valvular abnormalities. * 3. Normal estimated right ventricular systolic pressure. * 4. No prior study available for comparison. Procedure Details * ECHOEX, CPT #[id number] * ECHO DOPPLER, CPT #[id number] * ECHO COLOR FLOW, CPT #[id number] Left Ventricular Findings with Stress * Name: CECILIO OCHOA Study Date: 06/12/2017 08:27 AM BP: 134/71 mmHg Patient Location: 233-1 HR: 78 : 1970 (M/yyyy) Gender: Male Height: 70 in Age: 46 yrs Ethnicity: CA Weight: 247 lb Ordering Physician: James Braxton MD Performed By: Margaret Jamison [facility] Reason For Study: Chest pain BSA: 2.3 m2 Left Ventricle * The left ventricle is normal in size. * There is normal left ventricular wall thickness. * Ejection Fraction = 55-60%. * Left ventricular systolic function is normal. * Resting wall motion: Normal. Stress wall motion: Appropriate increase in Left ventricular systolic function and decrease in cavity size. No stress induced segmental wall motion abnormalities. * The left ventricular ejection fraction increases normally with stress. The left ventricular end-systolic cavity size reduces post-stress (normal response). The left ventricular wall motion with stress is normal. Right Ventricle * The right ventricle is normal in size and function. * The right ventricular systolic function is normal as assessed by tricuspid annular plane systolic excursion (TAPSE) (normal >1.5 cm). Atria * The left atrial size is normal. * Right atrial size is normal. * There is no evidence of atrial septal defect, but resolution does not allow assessment for a patent foramen ovale. Mitral Valve * The mitral valve is grossly normal. * There is no mitral valve stenosis. * There is trace mitral regurgitation. Tricuspid Valve * The tricuspid valve is not well visualized, but is grossly normal. * There is no tricuspid stenosis. * There is trace tricuspid regurgitation. Aortic Valve * The aortic valve is trileaflet. * No hemodynamically significant valvular aortic stenosis. * No aortic regurgitation is present. Pulmonic Valve * The pulmonary valve is inadequately visualized, but the Doppler data is adequate for interpretation. * There is no significant pulmonary regurgitation. Great Vessels * The aortic root is normal size. * Ascending aorta of normal dimension * Aortic arch of normal dimension. * Normal pulmonary venous flow pattern. Pericardium * There is no pericardial effusion. Stress Parameters * NSR at 75 bpm. Inferolateral T wave abnormality. * No arrhythmia were noted with stress. * Stress ECG: No ST changes. No arrhythmias. * The stress portion of this study was personally supervised by the undersigned interpreting physician. * Rest heart rate was '80' BPM. * Rest blood pressure was '150/89' * Maximum heart rate achieved was 150 bpm. * Maximum heart rate was 86 % of maximum age-predicted heart rate. * Maximum blood pressure was '216/94' * Total exercise time was '9:34' * Maximum exercise MET level achieved was '11.00' METS * Maximum treadmill speed was '4.20' miles per hour. * Maximum treadmill elevation was '16.00'% grade. * Exercise was terminated due to 'hypertension' * Exercise-induced hypertension. Left Ventricular Findings with Stress * A complete two-dimensional transthoracic echocardiogram was performed (2D, M-mode, Doppler and color flow Doppler). MMode 2D Measurements and Calculations IVSd 1.1 cm LVIDd 5.2 cm LVIDs 3.9 cm LVPWd 1.1 cm IVS/LVPW 1.0 FS 25.2 % EDV(Teich) 131.1 ml ESV(Teich) 66.2 ml EF(Teich) 49.5 % EDV(cubed) 142.9 ml ESV(cubed) 59.7 ml EF(cubed) 58.2 % LV mass(C)d 220.0 grams LV mass(C)dI 96.4 grams/m\S\2 CO(Teich) 4.8 l/min CI(Teich) 2.1 l/min/m\S\2 SV(Teich) 64.9 ml SI(Teich) 28.4 ml/m\S\2 CO(cubed) 6.2 l/min CI(cubed) 2.7 l/min/m\S\2 SV(cubed) 83.2 ml SI(cubed) 36.4 ml/m\S\2 Ao root diam 3.7 cm Ao root area 11.0 cm\S\2 ACS 2.5 cm LA dimension 4.3 cm asc Aorta Diam 3.0 cm LA/Ao 1.2 LVAd ap4 39.4 cm\S\2 LVLd ap4 8.5 cm EDV(MOD-sp4) 150.0 ml EDV(sp4-el) 181.0 ml LVAs ap4 23.5 cm\S\2 LVLs ap4 7.1 cm ESV(MOD-sp4) 64.4 ml ESV(sp4-el) 77.1 ml EF(MOD-sp4) 57.1 % EF(sp4-el) 57.4 % LVAd ap2 39.4 cm\S\2 LVLd ap2 9.6 cm EDV(MOD-sp2) 133.0 ml EDV(sp2-el) 172.3 ml LVAs ap2 23.6 cm\S\2 LVLs ap2 7.8 cm ESV(MOD-sp2) 58.0 ml ESV(sp2-el) 66.4 ml EF(MOD-sp2) 56.4 % EF(sp2-el) 61.5 % CO(MOD-sp4) 6.3 l/min CI(MOD-sp4) 2.8 l/min/m\S\2 SV(MOD-sp4) 85.6 ml SI(MOD-sp4) 37.5 ml/m\S\2 CO(MOD-sp2) 5.6 l/min CI(MOD-sp2) 2.4 l/min/m\S\2 SV(MOD-sp2) 75.0 ml SI(MOD-sp2) 32.8 ml/m\S\2 CO(sp4-el) 7.7 l/min CI(sp4-el) 3.4 l/min/m\S\2 SV(sp4-el) 103.9 ml SI(sp4-el) 45.5 ml/m\S\2 CO(sp2-el) 7.8 l/min CI(sp2-el) 3.4 l/min/m\S\2 SV(sp2-el) 105.9 ml SI(sp2-el) 46.4 ml/m\S\2 Doppler Measurements and Calculations MV E max shaye 76.6 cm/sec MV A max shaye 85.9 cm/sec MV E/A 0.89 MV dec time 0.23 sec Ao V2 max 118.3 cm/sec Ao max PG 5.6 mmHg Ao max PG (full) 2.4 mmHg LV V1 max PG 3.2 mmHg LV V1 max 89.2 cm/sec TV E max shaye 74.7 cm/sec PA V2 max 101.8 cm/sec PA max PG 4.1 mmHg PA acc slope 433.0 cm/sec\S\2 PA acc time 0.15 sec PI max shaye 149.3 cm/sec PI max PG 8.9 mmHg PI dec slope 250.3 cm/sec\S\2 PI P1/2t 174.7 msec TR max shaye 227.7 cm/sec RVSP(TR) 23.7 mmHg RAP systole 3.0 mmHg PA pr(Accel) 12.5 mmHg
--- NOTE | 2017-06-12 14:31 | Discharge Instructions ---
Discharge Instructions Date of Service Jun 12, 2017. Admission Reason for Admission: Precordial Chest Pain Discharge Discharge Diagnosis / Problem: Chest pain Discharge Goals Goal(s): Decrease discomfort, Improve function, Diagnostic testing, Therapeutic intervention Activity Recommendations Activity Limitations: resume your previous activity (as tolerated) . Instructions / Follow-Up Instructions / Follow-Up You were admitted to the hospital for overnight observation after presenting to the ER with chest pain and shortness of breath. A cardiac work up included continuous cardiac monitoring, cardiac enzymes and a stress echocardiogram ( ultrasound of the heart). These tests were all normal. You did not develop any abnormal heart rhythms overnight and your cardiac enzymes remained normal. You did have some changes on your EKG, but these actually appear to be chronic and have remained stable. The stress echocardiogram was normal. Your cholesterol panel did reveal elevated triglycerides, recommendations for this are below. You are now medically for discharge. Medications: *Continue your home medications as prescribed. Follow up: *You have been scheduled to follow up with your primary care provider, Dr. Perez , on June 18 at 1:30 pm. While in the hospital, your thyroid was tested, and this revealed an elevated TSH. Please follow up on this with your PCP as your Synthroid dosing should be adjusted. Please also continue to follow up on your triglycerides. Please seek medical attention if you experience fevers, chills, sweats, chest pain, shortness of breath, dizziness/lightheadedness, loss of consciousness, nausea, vomiting, numbness or tingling. Current Hospital Diet Patient's current hospital diet: Regular Diet Discharge Diet Recommended Diet: AHA Diet (Heart Healthy) Procedures Procedures Performed: Stress echocardiogram Pending Studies Studies pending at discharge: no Laboratory Results Hemoglobin A1c Test 06/11/17 16:30 Range/Units Estimated Average Glucose 114 mg/dl Hemoglobin A1c 5.6 4.5-5.6 % Lipid Panel Test 06/12/17 05:26 Range/Units Triglycerides Level 339 H 0-150 mg/dl Cholesterol Level 181 0-200 mg/dl HDL Cholesterol 33 mg/dl Cholesterol/HDL Ratio 5.5 LDL Cholesterol, Calculated 80 mg/dl Medical Emergencies . Who to Call and When: Medical Emergencies: If at any time you feel your situation is an emergency, please call 911 immediately. . Non-Emergent Contact Non-Emergency issues call your: Primary Care Provider Call Non-Emergent contact if: you have a fever, your pain is not controlled, your pain is worsening, your pain is unusual for you, your pain is concerning you, you have any medication questions . Past History Medical & Surgical History: (1) Precordial chest pain . "Provider Documentation" section prepared by Whit Hanna. . Wireless Operator Recommendations Wireless Operator Recommendations: Cardiology recommendations: *Your triglycerides are elevated. Recommend weight loss, diet and exercise regimen. Consider a Mediterranean diet. Recommend regular cardiac exercise with a goal of 30-40 minutes per day, 5 days per week. Start slowly and build up exercise as tolerated. VTE Core Measure Inpt VTE Proph given/why not?: Enoxaparin (Lovenox)SQ, SCD's
--- NOTE | 2017-06-12 14:45 | Discharge Summary ---
Discharge Summary Date of Service Jun 12, 2017. (Whit Hanna PA-C) Discharge Summary Admission Date: Jun 11, 2017 at 18:22 Discharge Date: Jun 12, 2017 Discharge Disposition: Home Principal Diagnosis: Chest pain Procedures: Stress echocardiogram: Interpretation Summary * Name: CECILIO OCHOA Study Date: 06/12/2017 08:27 AM BP: 134/71 mmHg * Patient Location: 233-1 HR: 78 * : 1970 (M/d/yyyy) Gender: Male Height: 70 in * Age: 46 yrs Ethnicity: [place] Weight: 247 lb * Ordering Physician: James Braxton MD * Performed By: Margaret Jamison RDCS * * Reason For Study: Chest pain * BSA: 2.3 m2 * -- Conclusions -- * Stress Echo: * 1. Negative stress echo for ischemia at 86 % MPHR. * 2. Negative exercise ECG for ischemia at 86 % MPHR. * 3. Hypertensive blood pressure response to exercise. * 4. No arrhythmia. * 5. Study terminated due to hypertension. No chest pain reported. * 6. Good exercise tolerance. * Echo: * 1. Normal left ventricular size with normal systolic function. EF 55-60%. No regional wall motion abnormalities. No left ventricular hypertrophy. Type 1 diastolic dysfunction. * 2. No significant valvular abnormalities. * 3. Normal estimated right ventricular systolic pressure. * 4. No prior study available for comparison. Procedure Details * ECHOEX, CPT #[id number] * ECHO DOPPLER, CPT #[id number] * ECHO COLOR FLOW, CPT #[id number] Left Ventricular Findings with Stress * Name: CECILIO OCHOA Study Date: 06/12/2017 08:27 AM BP: 134/71 mmHg Patient Location: 233-1 HR: 78 : 1970 (/d/yyyy) Gender: Male Height: 70 in Age: 46 yrs Ethnicity: [place] Weight: 247 lb Ordering Physician: James Braxton MD Performed By: Margaret Jamison RDCS Reason For Study: Chest pain BSA: 2.3 m2 Left Ventricle * The left ventricle is normal in size. * There is normal left ventricular wall thickness. * Ejection Fraction = 55-60%. * Left ventricular systolic function is normal. * Resting wall motion: Normal. Stress wall motion: Appropriate increase in Left ventricular systolic function and decrease in cavity size. No stress induced segmental wall motion abnormalities. * The left ventricular ejection fraction increases normally with stress. The left ventricular end-systolic cavity size reduces post-stress (normal response). The left ventricular wall motion with stress is normal. Right Ventricle * The right ventricle is normal in size and function. * The right ventricular systolic function is normal as assessed by tricuspid annular plane systolic excursion (TAPSE) (normal >1.5 cm). Atria * The left atrial size is normal. * Right atrial size is normal. * There is no evidence of atrial septal defect, but resolution does not allow assessment for a patent foramen ovale. Mitral Valve * The mitral valve is grossly normal. * There is no mitral valve stenosis. * There is trace mitral regurgitation. Tricuspid Valve * The tricuspid valve is not well visualized, but is grossly normal. * There is no tricuspid stenosis. * There is trace tricuspid regurgitation. Aortic Valve * The aortic valve is trileaflet. * No hemodynamically significant valvular aortic stenosis. * No aortic regurgitation is present. Pulmonic Valve * The pulmonary valve is inadequately visualized, but the Doppler data is adequate for interpretation. * There is no significant pulmonary regurgitation. Great Vessels * The aortic root is normal size. * Ascending aorta of normal dimension * Aortic arch of normal dimension. * Normal pulmonary venous flow pattern. Pericardium * There is no pericardial effusion. Stress Parameters * NSR at 75 bpm. Inferolateral T wave abnormality. * No arrhythmia were noted with stress. * Stress ECG: No ST changes. No arrhythmias. * The stress portion of this study was personally supervised by the undersigned interpreting physician. * Rest heart rate was '80' BPM. * Rest blood pressure was '150/89' * Maximum heart rate achieved was 150 bpm. * Maximum heart rate was 86 % of maximum age-predicted heart rate. * Maximum blood pressure was '216/94' * Total exercise time was '9:34' * Maximum exercise MET level achieved was '11.00' METS * Maximum treadmill speed was '4.20' miles per hour. * Maximum treadmill elevation was '16.00'% grade. * Exercise was terminated due to 'hypertension' * Exercise-induced hypertension. Left Ventricular Findings with Stress * A complete two-dimensional transthoracic echocardiogram was performed (2D, M-mode, Doppler and color flow Doppler). Consultations: Cardiology--Dr. Braxton (Whit Hanna ., PA-C) Medication Reconciliation Continued Medications: Atenolol (Tenormin) 50 Mg Tab 50 MG PO DAILY Levothyroxine Sodium (Synthroid) 200 Mcg Tab 200 MCG PO DAILY Discharge Exam Patient reports feeling well. He denies any chest pain or shortness of breath now. He states that he had actually come in more for the shortness of breath than the chest pain in the first place. After talking with his , it seems he actually had a similar episode a few years ago with negative cardio work up at that time. He does note that he has been fixing things up at his house and become dyspneic with exertion. The patient denies fevers, chills, sweats, chest pain, palpitations, claudication, cough, wheezing, shortness of breath, nausea, vomiting, abdominal pain, dysuria, hematuria, urinary retention, paralysis, weakness, numbness and tingling. Review of Systems: Constitutional: No fever, No chills, No sweats Eyes: No worsening of vision, No eye pain, No diplopia ENT: No hearing loss, No sore throat, No trouble swallowing Respiratory: No cough, No wheezing, No shortness of breath Cardiovascular: No chest pain, No claudication, No palpitations Abdomen: No pain, No nausea, No vomiting Musculoskeletal: No joint pain, No muscle pain, No calf pain Genitourinary - Male: No hematuria, No dysuria, No urinary retention Neurologic: No paralysis, No weakness, No numbness/tingling Integumentary: No rash, No itch, No color change Physical Exam: General Appearance: WD/WN, no apparent distress, + obese Eyes: normal inspection, PERRL, EOMI ENT: normal ENT inspection, hearing grossly normal, pharynx normal Neck: supple, no JVD, trachea midline Respiratory/Chest: lungs clear, normal breath sounds, no respiratory distress Cardiovascular: regular rate, rhythm, no gallop, no murmur Abdomen / GI: normal bowel sounds, non tender, soft Extremities: normal inspection, no calf tenderness, no pedal edema Neurologic/Psychiatric: alert, normal mood/affect, oriented x 3 Skin: normal color, warm/dry, no rash (Whit Hanna ., ATRURO-C) Hospital Course 46 y/o male with a history of HTN and hypothyroidism who presents to the ED on with chest pain and shortness of breath Chest pain, ACS r/o--stable/resolved -Admit to telemetry for observation. No acute events overnight. Pt in sinus rhythm with HR in 60s-80s. -Cardiac enzymes negative x 3 -Stress echo negative. Echo reveals LVEF of 55-60%. No WMA. Type 1 diastolic dysfunction. -Repeat EKG 06/12 shows 61 bpm, NSR, T wave inversions in inferior and lateral leads persist. These are also present in old EKG from 2003. -Lipid panel: triglycerides 339, total cholesterol 181, LDL 80, HDL 33 -Hold off on statin for discharge, will try diet and exercise first as LDL is WNL -HgbA1c 5.6 on 06/11 -Cardiology consulted, appreciate recs: Will go for stress echo. If unremarkable, no further cardio work up. Elevated triglycerides, recommend weight loss, diet and exercise. -D-dimer negative HTN--stable -Continue atenolol 50 mg PO qd Hypothyroidism -TSH 15.5, free T4 0.78 -Continue Synthroid 200 mcg PO qd -Recommend f/u with PCP regarding elevated TSH, dose adjustment needed DVT prophylaxis -Enoxaparin 40 mg SC q24h -SCDs Code Status -Level I, FULL RESUSCITATION STATUS Total Time Spent: Greater than 30 minutes This includes examination of the patient, discharge planning, medication reconciliation, and communication with other providers. (Whit Hanna ., PA-C) I agree with PA assessment and plan and have seen and examined pt myself Resting comfortably in bed VSS Labs reviewed EKG reviewed Noted t wave inversion Cardiology consulted Stress ECHO neg No further chest pain, likely atypical, ?MSK in origin Stable for DC home, rec low fat diet on DC (Bakari Moreno D.O.) Discharge Instructions Please refer to the electronic Patient Visit Report (Discharge Instructions) for additional information. (Whit Hanna ., ARTURO-C) Additional Copies To Rosendo Perez M.D.
[2017-06-12 15:14] VITALS: BP 163/103; PULSE 73; TEMP 36.9; O2SAT 97
[2017-06-12 16:36] VITALS: BP 163/103; PULSE 73; TEMP 36.9; O2SAT 97
== END 2017-06-12 17:08 | disposition home or self-care (01) ==
LOC: C.EDB 15:40 → C.2T 18:22 → ENRESERV 18:30
PROVIDERS: ADMIT Internal Medicine; ATTEND Hospitalist
DX: R07.9 Chest pain, unspecified (principal); I10 Essential (primary) hypertension; E03.9 Hypothyroidism, unspecified; E66.9 Obesity, unspecified; Z82.49 Family history of ischemic heart disease and other diseases of the circulatory system; Z79.899 Other long term (current) drug therapy

== ENCOUNTER → 2017-12-12 | Outpatient (CLI) | payer BC ==
[~2017-12-12] MED LIST changes: -ATEN-173 PO; +ATEN50TA8 PO; +LEVO200T PO; -LEVO25TA PO
[2017-12-12 09:44] LABS: HEMOGLOBIN A1C 5.6 % (4.5-5.6)
== END | disposition home or self-care (01) ==
LOC: C.LAB1850 08:42
PROVIDERS: ATTEND Family Medicine
DX: I10 Essential (primary) hypertension (principal); E03.9 Hypothyroidism, unspecified; R73.09 Other abnormal glucose; R06.02 Shortness of breath; E78.2 Mixed hyperlipidemia

== ENCOUNTER → 2017-12-20 | Outpatient (CLI) | payer BC | END | disposition home or self-care (01) | LOC: C.LAB1850 16:27 | PROVIDERS: ATTEND Family Medicine | DX: E03.9 Hypothyroidism, unspecified (principal) ==